=== PATIENT | male | born 1980 | race Caucasian/White ===

== ENCOUNTER 2024-11-23 06:17 | Emergency (ER) | payer OTHER ==
[~2024-11-23] VITALS: Ht 180.3 cm; Wt 79.8 kg
[~2024-11-23 06:17] MED LIST: CEPH500 PO; CRUTCH4 USE; HYDACE5 PO; OXYACE5T PO; PENVK500 PO
[2024-11-23] MEDS ORDERED: Lactated Ringer's 1,000 ML IV ONE (06:50)
[2024-11-23 07:33] LABS: CORONAVIRUS COVID-19 AG Negative (NEGATIVE); INFLUENZA A AG Negative (NEGATIVE); INFLUENZA B AG Negative (NEGATIVE)
[2024-11-23] MEDS ORDERED: PROM25 PO (08:30)
[2024-11-23 08:45] VITALS: BP 140/67
== END 2024-11-23 08:45 | disposition home or self-care (01) ==
LOC: ER 06:17
PROVIDERS: Emergency Medicine
DX: B34.9 Viral infection, unspecified (principal)
CPT/HCPCS: 71046; 87428-QW; 99283-25; J7120